=== PATIENT | male | born 1980 | race Caucasian/White ===

== ENCOUNTER 2016-06-09 05:32 | Emergency (ER) | payer BC ==
[2016-06-09 05:56] VITALS: PULSE 105; BMI 28.3
[2016-06-09] MEDS ORDERED: PREDNISONE 10 MG TAB PO ONE (06:07)
[2016-06-09] MEDS ORDERED: AMOXICILLIN 500 MG CAP PO ONE (06:07)
--- NOTE | 2016-06-09 06:10 | EDPRACDOC ---
- General Information Chief Complaint: Flu-Like Symptoms Stated Complaint: FEVER/ SORE THROAT Time Seen by Provider: 06/09/16 05:56 Information Source: Patient Mode Of Arrival: Car Home Medications: Home Medications Amoxicillin [Amoxil] 500 mg PO TID #30 cap 06/09/16 Prednisone [Deltasone, Orasone] 50 mg PO DAILY #5 tab 06/09/16 Allergies/Adverse Reactions: Allergies Allergy/AdvReac Type Severity Reaction Status Date / Time No Known Allergies Allergy Verified 06/09/16 05:56 - History of Present Illness Onset: midnight HPI: PT PRESENTS WITH SORE THROAT DEVELOPING OVER THE LAST 6 HOURS WITH FEVER WHILE AT WORK. Sore Throat Symptoms: Reports: Pain, Hoarse Relevant History of: Reports: None Urinary Output: Normal Oral Intake: Normal Associated Signs and Symptoms: Reports: Fever. Denies: Nasal Symptoms ED Past Medical History - History Reviewed Yes Nurses notes reviewed and agree except as marked - Patient Medical History Psychological History: Denies: Depression Surgical History: Reports: Appendectomy - Social Medical History Smoking Status: Heavy tobacco smoker (5 or more cigarettes/day or daily pipe/ cigar) Lives In: Home EDM Review of Systems - Review of Systems ROS Negative Except as Marked: Yes All systems reviewed and were negative except as marked Constitutional: Fever Mouth: Pain - Physical Exam Constitutional: Alert Oriented to: Time, Person, Place Last recorded Vital Signs: Last Vital Signs Temp 100.4 F 06/09/16 05:50 Pulse 105 06/09/16 05:50 Resp 20 06/09/16 05:50 BP 159/104 H 06/09/16 05:50 Pulse Ox 98 06/09/16 05:50 Oxygen Pulse Oxygen Saturation 98 O2 Device Room Air Oxygen Flow Rate Fraction of Inspired Oxygen ( FIO2) - HEENT Head: negative: Deformity, Laceration Eye Exam: negative: Conjunctival Injection, Pale Conjunctiva Oropharynx: Red, Tonsillar Hypertrophy. negative: Membranes Dry Nose: negative: Congestion, Discharge Neck: Lymphadenopathy. negative: Limited ROM - Respiratory/Cardiovascular Respiratory: Normal - CTA. negative: Accessory Muscle Use, Diminished, Tachypnea Cardiovascular: Tachycardia. negative: Bradycardia, Irregular - Integumentary Skin: Warm, Dry. negative: Rash - Neurologic Memory Impaired: Normal Motor Function: Normal Mood Description: Appropriate Thought: Coherent Perception: Normal Decision Time to Discharge: 06:12 - Departure Yes I personally saw and evaluated the patient. Disposition: Home Condition: Stable Final Diagnosis: Pharyngitis Qualifiers: Pharyngitis/tonsillitis etiology: unspecified etiology Qualified Code(s): J02.9 - Acute pharyngitis, unspecified Instructions: Pharyngitis (ED) Education/Counseling Given To: Patient Education/Counseling Given Regarding: Diagnosis, Treatment, Prognosis, Follow Up Referrals: None,No Provider [Primary Care Provider] - One Week Prescriptions: Amoxicillin [Amoxil] 500 mg PO TID #30 cap Prednisone [Deltasone, Orasone] 50 mg PO DAILY #5 tab
[2016-06-09 06:32] VITALS: BP 154/100; TEMP 100.5
== END 2016-06-09 06:30 | disposition home or self-care (01) ==
LOC: ED 05:32
DX: J02.9 Acute pharyngitis, unspecified (principal)
CPT/HCPCS: 99282; J3490